=== PATIENT | male | born 1970 | race Caucasian/White ===

== ENCOUNTER → 2017-09-19 | Outpatient (CLI) | payer BC ==
--- NOTE | 2017-09-28 13:13 | CPEEG ---
[f rep st] ELECTROENCEPHALOGRAM DATE OF STUDY: 09/19/2017 DATE OF INTERPRETATION: September 28, 2017. INTERPRETATION: Normal EEG during wakefulness and sleep. There were no potentially epileptogenic ab normalities present during the recording. REPORT: This EEG contains 10 Hz alpha to the posterior head regions. There was no abnormal activati on at rest, during photic stimulation or hyperventilation. The patient became drowsy and fell asleep during the study. There was no abnormal activation during drowsiness, sleep, or during times of tiara usal. /[id number]/MODL
== END ==
LOC: FCPNEURO 12:43
PROVIDERS: ATTEND Physician Assistant Medical
DX: H91.90 Unspecified hearing loss, unspecified ear (principal); R42 Dizziness and giddiness; G43.109 Migraine with aura, not intractable, without status migrainosus

== ENCOUNTER → 2017-09-26 | Outpatient (CLI) | payer BC ==
[~2017-09-26] MED LIST: GADOBUTROL 10 ML VIAL IVP ONE
== END ==
LOC: FIMAGING 18:39
PROVIDERS: ATTEND Physician Assistant Medical
DX: G43.109 Migraine with aura, not intractable, without status migrainosus (principal); H91.90 Unspecified hearing loss, unspecified ear
CPT/HCPCS: A9585